=== PATIENT | female | born 1965 | race Caucasian/White ===

== ENCOUNTER 2017-01-14 19:15 | Emergency (ER) | payer OTHER ==
[2017-01-14 19:15] VITALS: BMI 29.8
[2017-01-14 19:46] VITALS: BP 158/94; PULSE 72; RESP 20; TEMP 97.9; O2SAT 99
--- NOTE | 2017-01-14 20:12 | C.PDOC ---
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 Patient reports she cut her thumb with a knife. Patient denies obvious Right thumb deformity, denies weakness, sensory or vascular deficits o Right hand. Ambulate to ED for evaluation, not in any apparent distress. Time Seen by Provider: 01/14/17 19:48 Chief Complaint (Nursing): Abnormal Skin Integrity History Per: Patient History/Exam Limitations: no limitations Onset/Duration Of Symptoms: Sudden Onset (FAMILY MEDICINE RESIDENT) Past Medical History Reviewed: Historical Data, Nursing Documentation, Vital Signs Vital Signs: Last Vital Signs Temp 97.9 F 01/14/17 19:43 Pulse 72 01/14/17 19:43 Resp 20 01/14/17 19:43 BP 158/94 H 01/14/17 19:43 Pulse Ox 99 01/14/17 20:45 - Medical History PMH: Arthritis Surgical History: Hernia Repair - [facility] Procedures EXCISION OF RIGHT OVARY, OPEN APPROACH (12/19/15) RESECTION OF CERVIX, OPEN APPROACH (12/19/15) RESECTION OF UTERUS, OPEN APPROACH (12/19/15) Family History: States: No Known Family Hx - Social History Hx Tobacco Use: No Hx Alcohol Use: No Hx Substance Use: No - Immunization History Hx Tetanus Toxoid Vaccination: No Hx Influenza Vaccination: No Hx Pneumococcal Vaccination: No Review Of Systems Except As Marked, All Systems Reviewed And Found Negative. Musculoskeletal: Positive for: Other (Laceration to the right thumb). Negative for: Arm Pain Neurological: Negative for: Weakness, Numbness Physical Exam - Physical Exam Appears: Well, Non-toxic, No Acute Distress Skin: Normal Color, Warm, Other (superficial laceration over tip of Right thumb 1 cm length. No wound discharges, no wound FB. FAROM of Right thumb, no neurovascular deficits.) Extremity: Normal ROM (Right hand, no neurovascular deficits), Tenderness (mild over tip of Right thumb.), Capillary Refill (less than 2sec to Right thumb), No Deformity, No Swelling Neurological/Psych: Oriented x3, Normal Speech, Normal Motor, Normal Sensation, Normal Reflexes ED Course And Treatment O2 Sat by Pulse Oximetry: 99 Progress Note: On re-evaluation, pt is afebrile, hemodynamicaly stable. Non- toxic. Right hand: superficial laceration to Right thumb, closed with skin adhesive. FAROM, no neurovascular deficits. Neuorlogicaly intact. Tetanus given. Pt advised on wound care. ref. to F/u with PMD in 2-3 days for re- eval. return to ED if any worsening or new changes. Laceration - Laceration Repair Right Thumb Wound Length (In cm): 1 Description Of Wound: Linear Wound Cleansed With: Betadine Wound Closure: Skin Glue Medical Decision Making Medical Decision Making: PLAN: * Tetanus IM Disposition Counseled Patient/Family Regarding: Diagnosis, Need For Followup - Disposition Referrals: [facility] [Outside] Disposition: HOME/ ROUTINE Disposition Time: 20:08 Condition: STABLE Additional Instructions: KEEP WOUND DRY FOR 2-3 DAYS LIGHT DUTY TO INJURED FINGER FOR 1 WEEK FOLLOW UP WITH PMD IN 2-3 DAYS FOR RE-EVALUATION. RETURN TO ED IF ANY WORSENING OR NEW CHANGES. 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 - Scribe Statement The provider has reviewed the documentation as recorded by the Scribe Karolina Roque All medical record entries made by the Scribe were at my direction and personally dictated by me. I have reviewed the chart and agree that the record accurately reflects my personal performance of the history, physical exam, medical decision making, and the department course for this patient. I have also personally directed, reviewed, and agree with the discharge instructions and disposition.
== END 2017-01-14 20:31 | disposition home or self-care (01) ==
LOC: C.ER 19:15
DX: S61.011A Laceration without foreign body of right thumb without damage to nail, initial encounter (principal); W26.0XXA Contact with knife, initial encounter; Y93.G1 Activity, food preparation and clean up; Y92.000 Kitchen of unspecified non-institutional (private) residence as the place of occurrence of the external cause; Z23 Encounter for immunization

== ENCOUNTER 2017-02-19 13:30 | Emergency (ER) | payer OTHER ==
[2017-02-19 13:30] VITALS: BMI 29.8
[2017-02-19 13:43] VITALS: PULSE 62; RESP 18; O2SAT 100
--- NOTE | 2017-02-19 15:28 | C.PDOC ---
History Of Present Illness 51 y/o female presents to the ER complaining of right sided headaches which have been present for the past 3 weeks. Patient states that her headache improved with Motrin. Patient denies having any neurological symptoms. Time Seen by Provider: 02/19/17 15:14 Chief Complaint (Nursing): Headache History Per: Patient History/Exam Limitations: no limitations Onset/Duration Of Symptoms: Days Current Symptoms Are (Timing): Still Present Severity: Moderate Past Medical History Reviewed: Historical Data, Nursing Documentation, Vital Signs Vital Signs: Last Vital Signs Temp Pulse 62 02/19/17 13:40 Resp 18 02/19/17 13:40 BP 168/84 H 02/19/17 15:30 Pulse Ox 100 02/19/17 18:48 - Medical History PMH: Arthritis Denies: Chronic Kidney Disease Surgical History: Hernia Repair - [facility] Procedures EXCISION OF RIGHT OVARY, OPEN APPROACH (12/19/15) RESECTION OF CERVIX, OPEN APPROACH (12/19/15) RESECTION OF UTERUS, OPEN APPROACH (12/19/15) Family History: States: No Known Family Hx - Social History Hx Tobacco Use: No Hx Alcohol Use: No Hx Substance Use: No - Immunization History Hx Tetanus Toxoid Vaccination: No Hx Influenza Vaccination: No Hx Pneumococcal Vaccination: No Review Of Systems Except As Marked, All Systems Reviewed And Found Negative. Gastrointestinal: Negative for: Nausea, Vomiting, Diarrhea Neurological: Positive for: Headache. Negative for: Weakness, Numbness Physical Exam - Physical Exam Appears: Non-toxic, No Acute Distress Skin: Normal Color, Warm Head: Atraumatic, Normacephalic Eye(s): bilateral: Normal Inspection, PERRL Nose: Other (erythematous right nasal passage) Oral Mucosa: Moist Throat: Normal, No Erythema, No Exudate Neck: Supple Chest: Symmetrical Cardiovascular: Rhythm Regular Respiratory: Normal Breath Sounds, No Accessory Muscle Use Extremity: Normal ROM Neurological/Psych: Oriented x3, Normal Speech, Normal Cognition, Normal Motor, Normal Sensation ED Course And Treatment O2 Sat by Pulse Oximetry: 100 (RA) Pulse Ox Interpretation: Normal Medical Decision Making Medical Decision Making: occasional R sided RINCON, R nasal passage congestion and R frontal mild tender to percussion prob sinus headaches no indication for CT today CT's reviewed from 01/23, various minor disk bulging T-spine and LS-spine for chonic minor/moderate back pain . Uncontrolled HTN- many prior evals with HTN but never dx/rx. Start Vasotec and opt f/u. Disposition Doctor Will See Patient In The: Office Counseled Patient/Family Regarding: Studies Performed, Diagnosis - Disposition Referrals: Tyrese Gallegos MD [Medical Doctor] - Disposition: HOME/ ROUTINE Disposition Time: 15:27 Condition: GOOD Additional Instructions: sigue Cold medicines con "sinus" que ayudan en bajar congestion nasal Sigue con Dr. Spaulding para seguir devon evaluaciones. Flonase (o' igual) para inflammaci'n nasal- insuflado en la nariz 2 veces al natalio. Hipertension: Toshia Vasotec 20 mg diario Re-evalua pool pression johnathon en 2-3 semanas. Prescriptions: Enalapril Maleate [Vasotec] 20 mg PO DAILY #30 tab Instructions: Acute Headache (ED), Hypertension (ED) Forms: [employer] (Bulgarian) Print Language: GREEK - Clinical Impression Clinical Impression: Headache, Sinus headache, Hypertension - Scribe Statement The provider has reviewed the documentation as recorded by the Siaibdelbert Ariza Provider Attestation: All medical record entries made by the Scribe were at my direction and personally dictated by me. I have reviewed the chart and agree that the record accurately reflects my personal performance of the history, physical exam, medical decision making, and the department course for this patient. I have also personally directed, reviewed, and agree with the discharge instructions and disposition.
[2017-02-19 15:31] VITALS: BP 168/84
== END 2017-02-19 15:36 | disposition home or self-care (01) ==
LOC: C.ER 13:30
DX: I10 Essential (primary) hypertension (principal); R51 Headache

== ENCOUNTER 2017-04-16 | Emergency (ER) | payer OTHER ==
[2017-04-16] VITALS: BMI 29.8
[2017-04-16 00:27] VITALS: PULSE 76
--- NOTE | 2017-04-16 01:07 | C.PDOC ---
History Of Present Illness Patient presents to ED with complaints of lower back pain after lifting a heavy object a week ago. Patient describes pain as dull and throbbing associated with right lower lumbar and leg discomfort. Denies incontinence, or any other physical complaints. Patient states he took ibuprofen with no relief. Time Seen by Provider: 04/16/17 01:07 Chief Complaint (Nursing): Back Pain History Per: Patient History/Exam Limitations: no limitations Onset/Duration Of Symptoms: Days (7) Current Symptoms Are (Timing): Still Present Quality Of Discomfort: Dull, Other (throbbing) Previous Symptoms: None Associated Symptoms: None Exacerbating Factor(s): Nothing Recent travel outside of the [place]: No Past Medical History Reviewed: Historical Data, Nursing Documentation, Vital Signs Vital Signs: Last Vital Signs Temp 97.8 F 04/16/17 00:24 Pulse 76 04/16/17 00:24 Resp 14 04/16/17 00:24 BP 144/90 04/16/17 00:24 Pulse Ox 97 04/16/17 01:46 - Medical History PMH: Arthritis, HTN Surgical History: Hernia Repair - [facility] Procedures EXCISION OF RIGHT OVARY, OPEN APPROACH (12/19/15) RESECTION OF CERVIX, OPEN APPROACH (12/19/15) RESECTION OF UTERUS, OPEN APPROACH (12/19/15) Family History: States: No Known Family Hx - Social History Hx Tobacco Use: No Hx Alcohol Use: No Hx Substance Use: No - Immunization History Hx Tetanus Toxoid Vaccination: No Hx Influenza Vaccination: No Hx Pneumococcal Vaccination: No Review Of Systems Constitutional: Negative for: Fever, Chills Gastrointestinal: Negative for: Nausea, Vomiting, Diarrhea Genitourinary: Negative for: Dysuria, Incontinence Musculoskeletal: Positive for: Back Pain (lower ) Neurological: Negative for: Weakness, Numbness Psych: Negative for: Suicidal ideation Physical Exam - Physical Exam Appears: Non-toxic, No Acute Distress Skin: Warm, Dry Head: Normacephalic Eye(s): bilateral: Normal Inspection Oral Mucosa: Moist Neck: Supple Chest: Symmetrical, No Tenderness Cardiovascular: Rhythm Regular Respiratory: No Decreased Breath Sounds, No Rales, No Rhonchi, No Wheezing Gastrointestinal/Abdominal: Soft, No Tenderness Back: Other (Lower right back tenderness with palpation) Extremity: No Tenderness, No Deformity, Other ( leg raises at 40-45 degrees) Pulses: Left Dorsalis Pedis: Normal, Right Dorsalis Pedis: Normal Neurological/Psych: Oriented x3, Normal Speech, Normal Cognition ED Course And Treatment O2 Sat by Pulse Oximetry: 97 (RA) Pulse Ox Interpretation: Normal Progress Note: Administered Toradol, Valium, and PredniSONE. Reevaluation Time: 02:08 Reassessment Condition: Improved Disposition Counseled Patient/Family Regarding: Studies Performed, Diagnosis, Need For Followup, Rx Given - Disposition Referrals: [facility] [Outside] [facility] [Outside] Disposition: HOME/ ROUTINE Disposition Time: 01:07 Condition: FAIR Additional Instructions: Please return if symptoms recur Prescriptions: diaZEpam [Valium] 2 mg PO HS PRN #5 tab PRN Reason: muscle spasms Ketorolac Tromethamine [Toradol] 10 mg PO TID PRN #15 tab PRN Reason: Pain, Moderate (4-7) Prednisone [Deltasone] 20 mg PO DAILY #5 tablet Instructions: Low Back Pain in Adults, Back Precautions Forms: [employer] (French) Print Language: AMHARIC - Clinical Impression Clinical Impression: Low back pain, Low back strain - Scribe Statement The provider has reviewed the documentation as recorded by the Scribdelbert Castañeda All medical record entries made by the Scribe were at my direction and personally dictated by me. I have reviewed the chart and agree that the record accurately reflects my personal performance of the history, physical exam, medical decision making, and the department course for this patient. I have also personally directed, reviewed, and agree with the discharge instructions and disposition.
[2017-04-16 02:23] VITALS: BP 140/80; RESP 20; TEMP 98; O2SAT 98
== END 2017-04-16 02:21 | disposition home or self-care (01) ==
LOC: C.ER
DX: S39.012A Strain of muscle, fascia and tendon of lower back, initial encounter (principal); X50.0XXA Overexertion from strenuous movement or load, initial encounter; M54.5 Low back pain
CPT/HCPCS: 96372; 99283; J1885